=== PATIENT | male | born 2005 | race Two or more races ===

== ENCOUNTER → 2025-06-12 | Outpatient (CLI) | payer BC, SELFPAY ==
--- NOTE | 2025-06-12 09:00 | XR_ITS ---
Examination: Abdomen sonogram, complete Date and time of exam: June 12, 2025, 0922 hours INDICATIONS: Mid abdominal pain beginning one month ago. Technique: Multiple real-time grayscale transabdominal sonographic images of the abdomen have been obtained. Findings: Normal gallbladder. Normal common bile duct 0.2 cm Pancreatic head 2.0 cm Aorta not enlarged. Liver 14.5 cm smooth contoured Normal hepatopedal portal venous flow Patent IVC Right kidney 12.6 cm renal cortex 1.7 cm Left kidney 10.3 cm cortex 1.0 cm Mild renal protocol scar formation Spleen 10.3 cm IMPRESSION: Normal gallbladder Fatty liver
--- NOTE | 2025-06-12 09:20 | XR_ITS ---
Examination: PA lateral chest 2 views TECHNIQUE: Upright PA lateral chest 2 views Date and time: June 12, 2025 0945 hours INDICATIONS: Upper abdominal pain beginning one month ago. FINDINGS: Normal heart size. Lungs are clear. The osseous structures are intact. IMPRESSION:: No active disease.
--- NOTE | 2025-06-12 09:30 | XR_ITS ---
Examination: Upper GI series with KUB Esophagram standard Fluoroscopy 16 spot fluoroscopic films of the esophagus and stomach Date and time: June 12, 2025 1036 hours INDICATIONS: Upper abdominal pain beginning one month ago TECHNIQUE AND FINDINGS: Patient swallowed thin barium with 16 spot fluoroscopic films obtained of the esophagus stomach duodenum and small bowel Fluoroscopy 0.19 minutes Primary peristaltic esophageal waves noted No esophageal reflux or constricting esophageal lesion Delay in gastric emptying with mucosal fold thickening of the gastric antrum and spasm and irritability duodenal bulb Duodenal sweep unremarkable IMPRESSION: Antral gastritis Active peptic disease duodenum bulb
== END | disposition home or self-care (01) ==
LOC: CDIM 09:10
PROVIDERS: PCP Family Medicine; Referring Provider Physician Assistant; Visit Provider Physician Assistant
DX: K76.0 Fatty (change of) liver, not elsewhere classified (principal); K29.70 Gastritis, unspecified, without bleeding
CPT/HCPCS: 71046; 74240; 76700; A4649